=== PATIENT | male | born 1950 | race Caucasian/White ===

== ENCOUNTER → 2017-02-06 | Outpatient (REF) | payer MEDICARE, OTHER ==
[~2017-02-06] MED LIST: *BLDWK10; *BLW9; ALTA5CAP; ALTACE5 PO; AMITRIP25 PO; ATENOL25 PO; ATENOLOL50 PO; BACTRIMDS PO; DURATUSS-G PO; ELIDEL TOPICAL; FLAGYL250 PO; HYDROCHL12 PO; LEVITRA PO; LEVOTH PO; LIPITOR10 PO; LOPID600 PO; METROCR.75 TOPICAL; NAPROSY500 PO; NIFEREX PO; NIZORAL200 PO; NORT50CA; NORV5TAB; PAMELOR PO; PAMELOR10 PO; PRIL40CA; PRILOSEC20 PO; PRILOSEC40 PO; PROTONIX40 PO; PROZAC20 PO; SKELAXIN40 PO; SYNT125T; SYNTHRO075 PO; SYNTHROI05 PO; TRICOR48 PO; TRICOR54 PO; VIAGRA50 PO; VICO5TAB; VITA100T; [UNRECOGNIZED DRUG - CODE]; [UNRECOGNIZED DRUG - CODE] PO; [UNRECOGNIZED DRUG - CODE] PO; [UNRECOGNIZED DRUG - OTHER]; [UNRECOGNIZED DRUG - OTHER] TOPICAL
[2017-02-06 18:01] LABS: PERCENT SATURATION 60.1 % (19.7-37.4)
== END ==
LOC: M LAB REF 16:39
PROVIDERS: ATTEND Family Medicine
DX: D64.9 Anemia, unspecified (principal)

== ENCOUNTER → 2017-05-05 | Outpatient (REF) | payer MEDICARE, OTHER ==
[~2017-05-05] MED LIST changes: +AMLO5TAB2 PO; +CALA240T PO; +FLOM5CAP PO; +LEVO150T7 PO; +LOSA100T36 PO; +METRCRM TOP; +NORT50CA PO; +OMEP40CA2 PO; +VITA-193 PO; +VITA100T96 PO; +VITA500055 PO
[2017-05-05 22:08] LABS: T UPTAKE 30 % (33-40); THYROXINE (T4) 10.5 UG/DL (4.5-12.0); TOTAL PROTEIN 6.6 GM/DL (6.4-8.2)
[2017-05-05 22:13] LABS: FOLATE 7.7 NG/ML (>5.4); VITAMIN B12 LEVEL 766 PG/ML (247-911)
[2017-05-06 15:04] LABS: ALBUMIN 4.26 GM/DL (3.29-5.55); ALBUMIN % 64.6 % (55.8-66.1); GAMMA GLOBULIN % 11.1 % (11.1-18.8)
[2017-05-10 00:06] LABS: VITAMIN E LEVEL 12.2 mg/L (5.3-17.5)
== END ==
LOC: M LABNEURO 15:02
PROVIDERS: ATTEND Psychiatry & Neurology Neurology
DX: R20.2 Paresthesia of skin (principal); Z13.29 Encounter for screening for other suspected endocrine disorder

== ENCOUNTER → 2018-02-20 | Outpatient (REF) | payer MEDICARE, OTHER ==
[2018-02-24 14:13] LABS: PSA TOTAL 2.2 ng/mL (0.0-4.0)
== END ==
LOC: M LAB REF 17:43
DX: N28.1 Cyst of kidney, acquired (principal); R97.20 Elevated prostate specific antigen [PSA]; R35.1 Nocturia
CPT/HCPCS: 84154

== ENCOUNTER → 2019-01-11 | Outpatient (REF) | payer MEDICARE, OTHER ==
[~2019-01-11] MED LIST changes: -AMLO5TAB2 PO; +AMLO5TAB6 PO; +FLOM0.4C39 PO; -FLOM5CAP PO; -LOSA100T36 PO; +LOSA100T50 PO; +VITA100T77 PO; -VITA100T96 PO
[2019-01-11 12:52] LABS: APPEARANCE, URINE HAZY (CLEAR); BACTERIA, URINE AUTO NEGATIVE (NEGATIVE); BILIRUBIN, URINE AUTO NEGATIVE (NEGATIVE); BLOOD, URINE BLOOD NEGATIVE (NEGATIVE); COLOR, URINE YELLOW (YELLOW); GLUCOSE, URINE (UA) AUTO NEGATIVE (NEGATIVE); KETONE, URINE AUTO NEGATIVE (NEGATIVE); LEUKOCYTE ESTERASE, URINE AUTO 3+ (NEGATIVE); NITRITE, URINE AUTO POSITIVE (NEGATIVE); PROTEIN, URINE AUTO NEGATIVE (NEGATIVE); RBC, URINE AUTO 4 /HPF (0-3); SPECIFIC GRAVITY URINE AUTO 1.016 (1.002-1.035); SQUAMOUS EPITHELIAL CELL UR AU 0 /HPF (0-6); UROBILINOGEN, URINE AUTO 0.2 mg/dL (0.0-2.0); WBC, URINE AUTO 162 /HPF (0-3)
== END ==
LOC: M LAB REF 12:19
PROVIDERS: ATTEND Family Medicine
DX: Z01.818 Encounter for other preprocedural examination (principal); R30.0 Dysuria; R33.9 Retention of urine, unspecified; D64.9 Anemia, unspecified

== ENCOUNTER → 2019-04-12 | Outpatient (REF) | payer MEDICARE, OTHER | LOC: M LAB REF 16:43 | PROVIDERS: ATTEND Family Medicine | DX: F52.21 Male erectile disorder (principal) ==

== ENCOUNTER → 2020-07-20 | Outpatient (REF) | payer MEDICARE, OTHER ==
[~2020-07-20] MED LIST changes: +AMLO1TAB24 PO; -AMLO5TAB6 PO; +CYAN500T10 PO; -OMEP40CA2 PO; +OMEP40CA97 PO; -VITA-193 PO
[2020-07-20 17:29] LABS: PERCENT SATURATION 9.4 % (19.7-50.0)
== END ==
LOC: M LAB REF 16:38
PROVIDERS: ATTEND Family Medicine
DX: D64.9 Anemia, unspecified (principal)